=== PATIENT | male | born 1965 | race Caucasian/White ===

== ENCOUNTER 2025-02-11 06:12 | Day surgery (SDC) | payer OTHER, SELFPAY | END 2025-02-11 10:22 | disposition home or self-care (01) | LOC: GI 06:12 | PROVIDERS: ATTENDING PHYSICIAN Internal Medicine Gastroenterology | DX: Z12.11 Encounter for screening for malignant neoplasm of colon (principal); K64.8 Other hemorrhoids; K57.30 Diverticulosis of large intestine without perforation or abscess without bleeding; D12.2 Benign neoplasm of ascending colon; D12.3 Benign neoplasm of transverse colon; D12.4 Benign neoplasm of descending colon; Z86.0100 Personal history of colon polyps, unspecified | CPT/HCPCS: 45385; 88305 ==